=== PATIENT | female | born 1975 | race Caucasian/White ===

== ENCOUNTER 2017-03-26 00:12 | Emergency (ER) | payer SELFPAY ==
[~2017-03-26] VITALS: Ht 165.1 cm; Wt 66.2 kg
[~2017-03-26 00:12] MED LIST: METH750T2 PO; NAPR40TA PO
[2017-03-26 00:17] VITALS: BP 143/65; PULSE 78; RESP 22; TEMP 97.9; O2SAT 100
[2017-03-26 00:27] VITALS: BP 143/65; PULSE 81; RESP 22; TEMP 97.9; O2SAT 99
[2017-03-26] MEDS ORDERED: SODIUM CHLOR 0.9% 1000 ML INJ 1,000 ML IV ONE (00:49)
[2017-03-26] MEDS ORDERED: KETOROLAC TROMETHAMINE 30 MG/ML (IVP) VIAL IV PUSH ONE (01:00)
[2017-03-26] MEDS ORDERED: SODIUM CHLORIDE 0.9% FLUSH 10 ML FLUSH IVF PRN (01:00)
[2017-03-26 01:08] LABS: AUTOMATED NEUTROPHIL # 7.5 TH/MM3 (1.8-7.7); BASOPHIL % 0.3 % (0.0-2.0); EOSINOPHIL # 0.3 TH/MM3 (0-0.4); EOSINOPHIL % 2.7 % (0.0-4.0); HEMATOCRIT 39.7 % (35.0-46.0); HEMO FLAGS DIFF FINAL; LYMPH % 28.3 % (9.0-44.0); LYMPHOCYTE # 3.4 TH/MM3 (1.0-4.8); MEAN CELL VOLUME 90.6 FL (80.0-100.0); MEAN CORPUSCULAR HEMOGLOBIN 30.4 PG (27.0-34.0); MEAN CORPUSCULAR HGB CONC 33.6 % (32.0-36.0); MONO % 6.1 % (0.0-8.0); NEUT % 62.6 % (16.0-70.0); PLATELET COUNT 234 TH/MM3 (150-450); RED BLOOD COUNT 4.39 MIL/MM3 (4.00-5.30); RED CELL DISTRIBUTION WIDTH 11.9 % (11.6-17.2); WHITE BLOOD COUNT 11.9 TH/MM3 (4.0-11.0)
[2017-03-26 01:09] LABS: GLUCOSE,URINE NEG (NEG); KETONE, URINE NEG (NEG); NITRITE,URINE NEG (NEG); PH, URINE 6.5 (5.0-8.5)
[2017-03-26 01:22] LABS: BLOOD, URINE TRACE (NEG)
[2017-03-26 01:23] LABS: URINE COLOR STRAW (YELLW/STRAW)
[2017-03-26 01:24] LABS: BACTERIA, URINE MOD /hpf; RBC, URINE 0-3 /hpf (0-3); SQUAMOUS EPITHELIAL CELL URINE 0-5 /hpf (0-5)
--- NOTE | 2017-03-26 01:24 | PD ---
HPI Chief Complaint: Flank/Kidney Pain Time Seen by Provider: 00:49 Travel History International Travel<30 days: No Contact w/Intl Traveler<30days: No Traveled to known affect area: No History of Present Illness HPI 42 year-old female presents to the emergency department for 2-3 days of right flank pain progressively worsening no relief with one time dose of 400 mg of ibuprofen yesterday. No fever no chills no nausea no vomiting no abdominal pain no dysuria no frequency and urgency no hematuria no lower extremity numbness tingling or weakness that or bowel dysfunction or saddle anesthesia. Patient has had urinary tract infections in the remote past but no recent symptoms or recent UTIs and denies prior history of pyelonephritis. Patient also denies history of kidney stones. Patient denies history of injury. Patient rates pain 7/10 intensity. PFSH Past Medical History Narrative Medical UTI endometriosis tubal ligation appendectomy occasional alcohol use nursing notes reviewed Blood Disorders: No Cancer: No Cardiovascular Problems: No Endocrine: No Genitourinary: No Immune Disorder: No Musculoskeletal: No Neurologic: No Psychiatric: No Reproductive: Yes (ENDOMETRIOSIS) Respiratory: No Tetanus Vaccination: > 5 Years Influenza Vaccination: No ?: Not LMP: 03/06/17 Tubal Ligation: Yes Past Surgical History Abdominal Surgery: Yes (APPY) Appendectomy: Yes Gynecologic Surgery: Yes (TUBAL LIGATION) Other Surgery: Yes Social History Alcohol Use: Yes (OCCASIONALLY) Tobacco Use: No Substance Use: No Allergies-Medications (Allergen,Severity, Reaction): Coded Allergies: No Known Allergies (Verified Adverse Reaction, Unknown, 03/26/17) Reported Meds & Prescriptions Reported Meds & Active Scripts Active Ibuprofen 600 Mg Tab 600 Mg PO Q6H PRN Pyridium (Phenazopyridine HCl) 100 Mg Tab 100 Mg PO Q8H PRN Cipro (Ciprofloxacin HCl) 500 Mg Tab 500 Mg PO BID 7 Days Review of Systems Except as stated in HPI: all other systems reviewed are Neg Physical Exam Narrative GENERAL: SKIN: Warm and dry. HEAD: Normocephalic. EYES: No scleral icterus. No injection or drainage. NECK: Supple, trachea midline. No JVD or lymphadenopathy. CARDIOVASCULAR: Regular rate and rhythm without murmurs, gallops, or rubs. RESPIRATORY: Breath sounds equal bilaterally. No accessory muscle use. GASTROINTESTINAL: Abdomen soft, non-tender, nondistended. MUSCULOSKELETAL: No cyanosis, or edema. BACK: Nontender without obvious deformity. Negative straight leg raising bilaterally lower extremities. Motor strength 5 over 5 bilateral lower extremities. Sensory exam intact as tested. DTRs 2+ and equal without clonus. Right flank CVA tenderness to percussion. Data Data Last Documented VS Vital Signs Date Time Temp Pulse Resp B/P (MAP) Pulse Ox O2 Delivery O2 Flow Rate FiO2 03/26/17 02:14 76 16 113/65 (81) 100 Room Air 03/26/17 00:27 97.9 Orders Orders Complete Blood Count With Diff (03/26/17 00:49) Comprehensive Metabolic Panel (03/26/17 00:49) Urinalysis - C+S If Indicated (03/26/17 00:49) Ed Urine Pregnancytest Poc (03/26/17 00:49) Ct Abd/Pel W/O Iv Contrast (03/26/17 00:49) Ecg Monitoring (03/26/17 00:49) Iv Access Insert/Monitor (03/26/17 00:49) Sodium Chloride 0.9% Flush (Ns Flush) (03/26/17 01:00) Sodium Chlor 0.9% 1000 Ml Inj (Ns 1000 M (03/26/17 00:49) Ketorolac Inj (Toradol Inj) (03/26/17 01:00) Urine Culture (03/26/17 01:05) Ciprofloxacin (Cipro) (03/26/17 02:30) Phenazopyridine (Pyridium) (03/26/17 02:30) Ed Discharge Order (03/26/17 02:21) Labs Laboratory Tests Test 03/26/17 01:05 White Blood Count 11.9 TH/MM3 Red Blood Count 4.39 MIL/MM3 Hemoglobin 13.3 GM/DL Hematocrit 39.7 % Mean Corpuscular Volume 90.6 FL Mean Corpuscular Hemoglobin 30.4 PG Mean Corpuscular Hemoglobin Concent 33.6 % Red Cell Distribution Width 11.9 % Platelet Count 234 TH/MM3 Mean Platelet Volume 8.7 FL Neutrophils (%) (Auto) 62.6 % Lymphocytes (%) (Auto) 28.3 % Monocytes (%) (Auto) 6.1 % Eosinophils (%) (Auto) 2.7 % Basophils (%) (Auto) 0.3 % Neutrophils # (Auto) 7.5 TH/MM3 Lymphocytes # (Auto) 3.4 TH/MM3 Monocytes # (Auto) 0.7 TH/MM3 Eosinophils # (Auto) 0.3 TH/MM3 Basophils # (Auto) 0.0 TH/MM3 CBC Comment DIFF FINAL Differential Comment Urine Color STRAW Urine Turbidity SLIGHT Urine pH 6.5 Urine Specific [place] 1.006 Urine Protein NEG mg/dL Urine Glucose (UA) NEG mg/dL Urine Ketones NEG mg/dL Urine Occult Blood TRACE Urine Nitrite NEG Urine Bilirubin NEG Urine Leukocyte Esterase SMALL Urine RBC 0-3 /hpf Urine WBC 6-8 /hpf Urine Squamous Epithelial Cells 0-5 /hpf Urine Bacteria MOD /hpf Microscopic Urinalysis Comment CULTURE INDICATED Blood Urea Nitrogen 9 MG/DL Creatinine 0.80 MG/DL Random Glucose 104 MG/DL Total Protein 7.6 GM/DL Albumin 3.9 GM/DL Calcium Level 8.8 MG/DL Alkaline Phosphatase 60 U/L Aspartate Amino Transf (AST/SGOT) 9 U/L Alanine Aminotransferase (ALT/SGPT) 19 U/L Total Bilirubin 0.2 MG/DL Sodium Level 136 MEQ/L Potassium Level 3.7 MEQ/L Chloride Level 102 MEQ/L Carbon Dioxide Level 27.5 MEQ/L Anion Gap 7 MEQ/L Estimat Glomerular Filtration Rate 79 ML/MIN [facility] Medical Decision Making Medical Screen Exam Complete: Yes Emergency Medical Condition: Yes Medical Record Reviewed: Yes Interpretation(s) poc hcg: negative CBC & BMP Diagram 03/26/17 01:05 Total Protein 7.6, Albumin 3.9, Calcium Level 8.8, Alkaline Phosphatase 60, Aspartate Amino Transf (AST/SGOT) 9 L, Alanine Aminotransferase (ALT/SGPT) 19, Total Bilirubin 0.2 Vital Signs Date Time Temp Pulse Resp B/P (MAP) Pulse Ox O2 Delivery O2 Flow Rate FiO2 03/26/17 00:27 97.9 81 22 143/65 (91) 99 03/26/17 00:17 97.9 78 22 143/65 (91) 100 UA: Leukocyte esterase white blood cells bacteria culture indicated CT ABD/PEL CONCLUSION: 1. No acute abnormality demonstrated. 2. Tiny round calcifications in the pelvic cavity that appear to be vascular. No ureteral calculus seen. No hydronephrosis or hydroureter on either side. 3. Large gallstone. No perceptible acute inflammatory changes. No duct stone or ductal dilatation. Jordy Hernandez MD on March 26, 2017 at 2:05 Board Certified Radiologist. This report was verified electronically. Differential Diagnosis Flank pain, UTI, renal colic, musculoskeletal pain, atypical biliary colic Narrative Course Specimens collected and sent for resulting Lab values found her grossly within normal limits except for urinalysis which shows leukocyte Estrace white blood cells and moderate bacteria cultures indicated poc hcg is negative --CT renal protocol ordered Agent and spouse informed of imaging results Patient given first dose of oral antibiotic patient is stable for outpatient management Diagnosis Primary Impression: UTI (urinary tract infection) Qualified Codes: N30.00 - Acute cystitis without hematuria Additional Impression: Gallstone Qualified Codes: K80.20 - Calculus of gallbladder without cholecystitis without obstruction Referrals: Primary Care Physician call for appointment Patient Instructions: General Instructions Additional Instructions: Increase fluid hydration, complete course of antibiotic as prescribed, follow- up with your primary care provider, return to the emergency department for any concerns or change in condition, May take ibuprofen as needed for pain associated with inflammation, use Pyridium as needed for pain associated with urination, take acetaminophen/Tylenol as needed for fever 100.4F or greater Med/Other Pt SpecificInfo: Prescription(s) given Scripts Ibuprofen (Ibuprofen) 600 Mg Tab 600 MG PO Q6H Y for Pain/Inflammation, #12 TAB 0 Refills Prov: Angela Small MD 03/26/17 Phenazopyridine (Pyridium) 100 Mg Tab 100 MG PO Q8H Y for DYSURIA, #6 TAB 0 Refills Prov: Angela Small MD 03/26/17 Ciprofloxacin (Cipro) 500 Mg Tab 500 MG PO BID for Infection for 7 Days, #14 TAB 0 Refills Prov: Angela Small MD 03/26/17 Disposition: DISCHARGE HOME Condition: Stable Angela Small MD Mar 26, 2017 01:24
[2017-03-26 01:25] LABS: COMMENT (UR) CULTURE INDICATED; CULTURE IF INDICATED CULTURE INDICATED
[2017-03-26 01:26] LABS: CHLORIDE 102 MEQ/L (98-107); POTASSIUM 3.7 MEQ/L (3.5-5.1); SODIUM (NA) 136 MEQ/L (136-145)
[2017-03-26 01:29] LABS: ANION GAP 7 MEQ/L (5-15); BICARBONATE 27.5 MEQ/L (21.0-32.0); BLOOD UREA NITROGEN 9 MG/DL (7-18)
[2017-03-26 01:32] LABS: ALT (GPT) 19 U/L (10-53); AST (GOT) 9 U/L (15-37); GLOMERULAR FILTRATION RATE 79 ML/MIN (>89)
[2017-03-26 01:34] LABS: TOTAL BILIRUBIN ADULT 0.2 MG/DL (0.2-1.0)
[2017-03-26 01:35] LABS: ALKALINE PHOSPHATASE 60 U/L (45-117)
--- NOTE | 2017-03-26 02:12 | RADRPT ---
EXAM DATE/TIME: 03/26/2017 01:45 [facility] COMPARISON: No previous studies available for comparison. INDICATIONS : Right flank pain. ORAL CONTRAST: No oral contrast ingested. RADIATION DOSE: 12.64 CTDIvol (mGy) MEDICAL HISTORY : None SURGICAL HISTORY : Tubal ligation. Appendectomy. ENCOUNTER: Initial ACUITY: 1 day PAIN SCALE: 7/10 LOCATION: Right flank TECHNIQUE: Volumetric scanning of the abdomen and pelvis was performed. Using automated exposure control and ad justment of the mA and/or kV according to patient size, radiation dose was kept as low as reasonably achievable to obtain optimal diagnostic quality images. DICOM format image data is available electro nically for review and comparison. FINDINGS: LOWER LUNGS: The visualized lower lungs are clear. LIVER: Homogeneous density without lesion. There is no dilation of the biliary tree. A 2 cm stone is seen i n the gallbladder. No appreciable inflammatory changes. No ductal stone or ductal dilatation.. SPLEEN: Normal size without lesion. PANCREAS: Within normal limits. KIDNEYS: No hydronephrosis, hydroureter or inflammatory changes are seen. A few small round calcifications are seen on both sides of the pelvic cavity that appear to be vascular. No definite ureteral calculus. ADRENAL GLANDS: Within normal limits. VASCULAR: There is no aortic aneurysm. BOWEL/MESENTERY: The stomach, small bowel, and colon demonstrate no acute abnormality. There is no free intraperitone al air or fluid. ABDOMINAL WALL: Within normal limits. RETROPERITONEUM: There is no lymphadenopathy. BLADDER: Trace and are dependent air seen within the lumen. Otherwise normal. No wall thickening, mass or evid ence of a recently passed stone. REPRODUCTIVE: Within normal limits. INGUINAL: There is no lymphadenopathy or hernia. MUSCULOSKELETAL: No acute bony abnormality demonstrated. CONCLUSION: 1. No acute abnormality demonstrated. 2. Tiny round calcifications in the pelvic cavity that appear to be vascular. No ureteral calculus se en. No hydronephrosis or hydroureter on either side. 3. Large gallstone. No perceptible acute inflammatory changes. No duct stone or ductal dilatation. Jordy Hernandez MD on March 26, 2017 at 2:05 Board Certified Radiologist. This report was verified electronically.
[2017-03-26 02:14] VITALS: BP 113/65; PULSE 76; RESP 16; O2SAT 100
[2017-03-26] MEDS ORDERED: PHEN0.4T PO (02:19)
[2017-03-26] MEDS ORDERED: IBUP-232 PO (02:19)
[2017-03-26] MEDS ORDERED: CIPR-9 PO (02:19)
[2017-03-26 02:28] VITALS: RESP 16
[2017-03-26] MEDS ORDERED: PHENAZOPYRIDINE HCL 100 MG TAB PO ONE (02:30)
[2017-03-26] MEDS ORDERED: CIPROFLOXACIN 500 MG TAB PO ONE (02:30)
== END 2017-03-26 02:44 | disposition home or self-care (01) ==
LOC: PHED 00:12
DX: N30.00 Acute cystitis without hematuria (principal); B96.20 Unspecified Escherichia coli [E. coli] as the cause of diseases classified elsewhere; K80.20 Calculus of gallbladder without cholecystitis without obstruction
CPT/HCPCS: 74176; 80053; 81001; 84703; 85025; 87077; 87086; 87186; 96361; 96374; 99285; J1885; J7030